=== PATIENT | female | born 1980 | race Caucasian/White ===

== ENCOUNTER 2017-05-27 06:57 | Inpatient (IN) | payer OTHER ==
[~2017-05-27] VITALS: Ht 160 cm; Wt 84.0 kg
[2017-05-27] VITALS (8 sets, daily range): BP systolic 112–137; BP diastolic 68–88
[~2017-05-27 06:57] MED LIST: PRENTAB55 PO; RANI150T PO
[2017-05-27] MEDS ORDERED: LR 1,000 ML IV SCH ×2 (07:45→08:45)
[2017-05-27] MEDS ORDERED: BICITRA 30ML SOLN UDC PO ONE ×2 (07:45→08:30)
[2017-05-27 07:54] LABS: MEAN CORPUSCULAR HEMOGLOBIN 25.5 pg (27.0-33.0); MEAN CORPUSCULAR HGB CONC 32.1 g/dl (32.0-36.5); MEAN CORPUSCULAR VOLUME 79.4 fl (80.0-96.0); PLATELET COUNT, AUTOMATED 428 10^3/uL (150-450); RED CELL DISTRIBUTION WIDTH 14.9 % (11.5-14.5); WHITE BLOOD COUNT 9.3 10^3/uL (4.0-10.0)
[2017-05-27] MEDS ORDERED: MORPHINE PRES-FREE INJ 10 MG/10 ML VIAL (J2274) As Ordered ONE (10:09)
[2017-05-27] MEDS ORDERED: OXYTOCIN INJ 10 UNITS/ML VIAL (J2590) As Ordered ONE (10:09)
[2017-05-27] MEDS ORDERED: PHENYLephrine HCL 500 MCG/5 ML (100MCG/ML) SYRINGE (J2370) As Ordered ONE (10:22)
[2017-05-27] MEDS ORDERED: KETOROLAC 30 MG/ML VIAL (J1885) IV SCH (11:00)
[2017-05-27] MEDS: LR 1,000 ML IV SCH ×2 (11:00→19:00)
[2017-05-27] MEDS ORDERED: RHOGAM 300 MCG (1500 IU) INJ (J2790) IM SCH (11:00)
[2017-05-27] MEDS ORDERED: MEASLES,MUMPS,RUBELLA VACCINE INJ (MMR-II) (90707) SC SCH (11:00)
[2017-05-27] MEDS ORDERED: PERCOCET 5MG/325MG TAB PO PRN ×2 (11:00)
[2017-05-27] MEDS ORDERED: METOCLOPRAMIDE INJ 10MG/2ML VIAL (J2765) IV PRN (11:00)
[2017-05-27] MEDS ORDERED: MEPERIDINE INJ 25 MG/ML VIAL (J2175) As Ordered ONE (11:04)
[2017-05-27] MEDS ORDERED: NALBUPHINE HCL 10 MG/ML AMP (J2300) IV PRN (11:30)
[2017-05-27] MEDS ORDERED: ONDANSETRON 4MG/2ML VIAL (J2405) IV PRN (11:30)
[2017-05-27] MEDS ORDERED: MEPERIDINE INJ 25 MG/ML VIAL (J2175) IV PRN (11:30)
[2017-05-27] MEDS ORDERED: fentaNYL 100 MCG/2 ML INJECTION (J3010) IV PRN (11:30)
[2017-05-27] MEDS ORDERED: KETOROLAC 30 MG/ML VIAL (J1885) IV PRN (11:30)
[2017-05-27] MEDS: DOCUSATE SODIUM 100 MG CAP PO SCH ×2 (16:23→21:00)
[2017-05-27] MEDS: PRENATAL VITAMINS CHEWABLE TABLET PO SCH (16:24)
[2017-05-27] MEDS: KETOROLAC 30 MG/ML VIAL (J1885) IV SCH (17:58)
[2017-05-28] MEDS: KETOROLAC 30 MG/ML VIAL (J1885) IV SCH ×3 (01:19→12:00)
[2017-05-28 02:17] VITALS: BP 127/55
[2017-05-28] MEDS: LR 1,000 ML IV SCH ×2 (03:00→11:00)
[2017-05-28 05:58] VITALS: BP 112/73
[2017-05-28 06:37] LABS: MEAN CORPUSCULAR HEMOGLOBIN 24.9 pg (27.0-33.0); MEAN CORPUSCULAR HGB CONC 31.2 g/dl (32.0-36.5); MEAN CORPUSCULAR VOLUME 79.9 fl (80.0-96.0); WHITE BLOOD COUNT 10.1 10^3/uL (4.0-10.0)
[2017-05-28 06:43] LABS: PLATELET COUNT, AUTOMATED 313 10^3/uL (150-450)
--- NOTE | 2017-05-28 07:27 | IPNPDOC ---
Text Note Date of Service The patient was seen on 05/28/17. NOTE POD1 prog note s/p yest AM States feeling well, no complaints. No heavy VB. Pain controlled. Shaikh coming out soon, ambulatory. Bonding well and bottle feeding well. EBL 500. VSSAF CTAB RRR Ut at U-2, firm Ext no [employer] CDI UO adeq This AM HCT 29.8 a/p: Doing well. routine postop care. Likely d/c tomorrow. Sessions Ann SAAVEDRA I+O Ann MONTGOMERY I+O Laboratory Tests 05/27/17 07:45 Red Blood Count 4.23, Mean Corpuscular Volume 79.4 L, Mean Corpuscular Hemoglobin 25.5 L, Mean Corpuscular Hemoglobin Concent 32.1, Red Cell Distribution Width 14.9 H 05/28/17 06:20 Red Blood Count 3.73 L, Mean Corpuscular Volume 79.9 L, Mean Corpuscular Hemoglobin 24.9 L, Mean Corpuscular Hemoglobin Concent 31.2 L, Red Cell Distribution Width 15.0 H Vital Signs Date Time Temp Pulse Resp B/P (MAP) Pulse Ox O2 Delivery O2 Flow Rate FiO2 05/28/17 05:58 98.9 75 18 112/73 (86) 05/28/17 02:17 100 Room Air I&O- Last 24 Hours up to 6 AM 05/29/17 06:00 Output Total 800 ml Balance -800 ml SESSIONS,MARK Shoemaker MD May 28, 2017 07:27
--- NOTE | 2017-05-28 07:28 | RO ---
DATE OF PROCEDURE: 05/27/2017 PREPROCEDURE DIAGNOSIS: Prior delivery. POSTPROCEDURE DIAGNOSIS: Prior delivery. PROCEDURE: Elective repeat delivery. SURGEON: Dr. Bacilio Herr. DEBUBBLIZER: Dr. Velia Chavez. ANESTHESIA: Spinal. ESTIMATED BLOOD LOSS: 500 mL. DRAINS: 150 mL of clear urine with Shaikh catheter. FLUIDS REPLACED: Lactated ringers 1800 mL. PREOPERATIVE ANTIBIOTICS: Ancef 2 grams IV. SPECIMENS: None. FINDINGS: Pfannenstiel skin incision, low transverse uterine incision, clear fluid, female in good shape, at 9 and 9, weight 712, 3520 grams. INDICATION: Patient preference, informed consent obtained a few weeks prior to the procedure. DESCRIPTION OF OPERATION: Patient was taken to the operating room with an IV in place and a spinal anesthetic was easily obtained. A Shaikh catheter was then placed and post spinal heart tones were normal on the fetus. She was then prepped and draped in a normal sterile fashion and a Pfannenstiel skin incision was carried down to the layer of the fascia directly over her prior Pfannenstiel skin incision. The fascia was nicked in the midline and extended bilaterally the extent of the skin incision. The fascia was then tented up superiorly and inferiorly and the underlying rectus muscles were dissected off sharply. The rectus muscles were in the midline with successive spreading maneuvers with Katja clamps. We identified the peritoneum and entered it sharply and a quick digital exploration revealed no scar tissue intraperitoneally. A stretching maneuver easily created an adequate peritoneal window. Bladder blade was placed. Bladder flap was created. Low transverse uterine incision was then performed without difficulty. Amniotomy showed clear fluid. which was not engaged in the pelvis was easily delivered through the uterine incision with fundal pressure assisting. The vigorous , cord was clamped times two and cut and the baby was taken to the warmer for resuscitation. Cord blood was obtained. Pitocin was started. Fundus was massaged to firm and a placenta was delivered through the incision without difficulty with no trailing membranes. The uterus was delivered through the Pfannenstiel incision and placed on the abdomen, wrapped in a warm sponge and cleared of all clots and debris with two dry sponges. A running suture of #0 Vicryl was then used in a locked fashion from left to right to close the hysterotomy. An #0 Monocryl was used from left to right to imbricate. Hemostasis was noted at the end of the hysterotomy closure. Irrigation was performed behind the uterus. The uterus was returned to its anatomical state and the pericolic gutters were cleared bilaterally. One last inspection of the hysterotomy confirmed hemostasis. There was never fear of significant blood loss or bladder injury. The peritoneal was closed with running #3-0 Vicryl and the fascia was closed with running #0 Vicryl from left to right. The subcutaneous tissue was copiously irrigated and made to be hemostatic. This potential space was then closed with #3-0 Vicryl. The skin incision was closed with a subcuticular #4-0 Monocryl from left to right. Steri-Strips were placed over the incision and a pressure dressing as well. The patient's legs were frogged and with bimanual exam, the vaginal and cervix was cleared of all clots and debris with the uterus noted to be firm at U -1. All counts were correct at the end of the case including sponge, needle and instruments.
[2017-05-28] MEDS: PRENATAL VITAMINS CHEWABLE TABLET PO SCH (07:54)
[2017-05-28] MEDS: DOCUSATE SODIUM 100 MG CAP PO SCH ×2 (07:54→20:04)
[2017-05-28 10:41] VITALS: BP 135/85
[2017-05-28] MEDS ORDERED: IBUPROFEN 800 MG TAB PO SCH (13:00)
[2017-05-28 14:28] VITALS: BP 125/74
[2017-05-28 18:15] VITALS: BP 129/62
[2017-05-28] MEDS ORDERED: CALCIUM CARBONATE 500 MG CHEW U/D PO ONE (20:00)
[2017-05-28] MEDS: IBUPROFEN 800 MG TAB PO SCH (20:04)
[2017-05-28] MEDS ORDERED: raNITIdine SYRUP 150 MG/10 ML UDC PO SCH (21:00)
[2017-05-28 22:02] VITALS: BP 151/77
[2017-05-29] MEDS: IBUPROFEN 800 MG TAB PO SCH ×2 (04:08→12:41)
[2017-05-29 06:38] VITALS: BP 110/58
--- NOTE | 2017-05-29 07:31 | DS.PDOC ---
Discharge Summary General Date of Admission May 27, 2017 at 06:57 Date of Discharge [id number] Discharge Summary Discharge Summary Admission Diagnosis: Prior Discharge Diagnosis: s/p uncomplicated delivery Condition: stable Meds on discharge: Motrin, Percocet, Colace Hospital Course: Pt is a 37 y/o female admitted with prior . Desired an elective repeat . Please see operative note for details. On POD#2, the pt had normal VS, the pt was tolerating reg diet, ambulating, pain was well controlled, minimal lochia. She was desirous of discharge and was discharged home on POD#2 with follow up in 1-2 and 6-8wks in OB clinic. Home recommendations: Nothing in vagina for 6 weeks, no bathing for 4 weeks, no driving for 2 weeks. Condoms for PP control. Sessions Vital Signs/I&Os Vital Signs Date Time Temp Pulse Resp B/P (MAP) Pulse Ox O2 Delivery O2 Flow Rate FiO2 05/29/17 06:38 99.0 71 18 110/58 (75) 05/28/17 18:15 98 05/28/17 10:41 Room Air Discharge Medications Scheduled Multivitamins/ ( 19) 1 Tab Tab, 1 TAB PO DAILY, (Reported) Ranitidine HCl (Ranitidine HCl) 150 Mg Tab, 1 TAB PO BID, (Reported) Allergies Coded Allergies: Derivative Milk (Unverified Allergy, Intermediate, THROAT SWELLS, RASH, ) Hydroxyzine (Unverified Allergy, Intermediate, DIZZINESS,VOMITING, ) SESSIONS,MARK Shoemaker MD May 29, 2017 07:31
--- NOTE | 2017-05-29 07:32 | IPNPDOC ---
Text Note Date of Service The patient was seen on 05/29/17. NOTE POD2 prog note s/p States feeling well, no complaints. No heavy VB. Pain controlled. Voiding, ambulatory. Bonding well and bottle feeding well. VSSAF CTAB RRR Ut at U-2, firm Ext no [employer] CDI a/p: Doing well. routine postop care. Discharge. Sessions VS,Ann, I+O VSAnn, I+O Vital Signs Date Time Temp Pulse Resp B/P (MAP) Pulse Ox O2 Delivery O2 Flow Rate FiO2 05/29/17 06:38 99.0 71 18 110/58 (75) 05/28/17 18:15 98 05/28/17 10:41 Room Air SESSIONS,MARK Shoemaker MD May 29, 2017 07:32
[2017-05-29] MEDS ORDERED: OXYC1TAB23 PO (07:58)
[2017-05-29] MEDS ORDERED: IBUP-1114 PO (07:58)
[2017-05-29] MEDS ORDERED: COLA100C5 PO (07:58)
[2017-05-29] MEDS: DOCUSATE SODIUM 100 MG CAP PO SCH (08:34)
[2017-05-29] MEDS: PRENATAL VITAMINS CHEWABLE TABLET PO SCH (08:34)
[2017-05-29] MEDS ORDERED: SIMETHICONE 80 MG CHEW TAB PO PRN (09:00)
== END 2017-05-29 14:10 | disposition home or self-care (01) | DRG 766 ==
LOC: M LDI 06:57 → M OBS 13:00
PROVIDERS: ADMIT Obstetrics & Gynecology; ATTEND Obstetrics & Gynecology
PROC: 10D00Z1 Extraction of Products of Conception, Low, Open Approach (ICD-10-PCS; principal; 2017-05-27)
DX: O34.211 Maternal care for low transverse scar from previous cesarean delivery (principal); Z37.0 Single live birth; Z3A.38 38 weeks gestation of pregnancy

== ENCOUNTER 2017-06-03 09:14 | Emergency (ER) | payer OTHER ==
[~2017-06-03] VITALS: Ht 160 cm; Wt 78.6 kg
[~2017-06-03 09:14] MED LIST changes: +COLA100C5 PO; +IBUP-1114 PO; +OXYC1TAB23 PO
[2017-06-03] MEDS ORDERED: RANI150T PO (09:40)
[2017-06-03] MEDS ORDERED: KETOROLAC 30 MG/ML VIAL (J1885) IV ONE (10:45)
[2017-06-03] MEDS ORDERED: ONDANSETRON 4MG/2ML VIAL (J2405) IV ONE (10:45)
[2017-06-03] MEDS ORDERED: NS 1,000 ML IV ONE (10:45)
[2017-06-03 11:09] LABS: BASO # 0.1 10^3/uL (0.0-0.2); BASO % 0.5 % (0.0-1.0); EOS # 0.1 10^3/uL (0.0-0.50); IMMATURE GRANULOCYTE % 1.2 % (0-0); LYMPH % 22.2 % (24.0-44.0); MEAN CORPUSCULAR HEMOGLOBIN 25.5 pg (27.0-33.0); MEAN CORPUSCULAR HGB CONC 31.1 g/dl (32.0-36.5); MEAN CORPUSCULAR VOLUME 81.9 fl (80.0-96.0); MONO # 0.5 10^3/uL (0.0-0.8); MONO % 5.8 % (0.0-5.0); NEUTROPHILS # 6.3 10^3/uL (1.8-7.7); NEUTROPHILS % 69.3 % (36.0-66.0); PLATELET COUNT, AUTOMATED 439 10^3/uL (150-450); RED CELL DISTRIBUTION WIDTH 15.8 % (11.5-14.5); WHITE BLOOD COUNT 9.2 10^3/uL (4.0-10.0)
[2017-06-03 11:39] LABS: ALBUMIN 2.6 GM/DL (3.2-5.2); ALBUMIN/GLOBULIN RATIO 0.59 (1.00-1.93); ALKALINE PHOSPHATASE 176 U/L (45-117); ALT/SGPT 67 U/L (12-78); AMYLASE 50 U/L (25-115); ANION GAP 7 MEQ/L (8-16); AST/SGOT 79 U/L (7-37); BILIRUBIN,DIRECT 0.1 MG/DL (0.0-0.2); BILIRUBIN,TOTAL 0.5 MG/DL (0.2-1.0); BLOOD UREA NITROGEN 5 MG/DL (7-18); CALCIUM LEVEL 8.6 MG/DL (8.5-10.1); CARBON DIOXIDE LEVEL 27 MEQ/L (21-32); CHLORIDE LEVEL 106 MEQ/L (98-107); GLOMERULAR FILTRATION RATE > 60.0 (>60); GLUCOSE, FASTING 81 MG/DL (70-105); POTASSIUM SERUM 3.5 MEQ/L (3.5-5.1); SODIUM LEVEL 140 MEQ/L (136-145)
[2017-06-03 12:34] VITALS: BP 176/84
[2017-06-03] MEDS ORDERED: ZOFR4TAB3 PO (12:52)
== END 2017-06-03 13:00 | disposition home or self-care (01) ==
LOC: M ED 09:14
DX: O90.89 Other complications of the puerperium, not elsewhere classified (principal); R10.9 Unspecified abdominal pain; R11.2 Nausea with vomiting, unspecified; Z88.8 Allergy status to other drugs, medicaments and biological substances; Z91.011 Allergy to milk products; Z79.899 Other long term (current) drug therapy
CPT/HCPCS: 80048; 80076; 81001; 82150; 82570; 83690; 84156; 85025; 87086; 96361; 96374; 96375; 99283; J1885; J2405